=== PATIENT | female | born 1980 | race Caucasian/White ===

== ENCOUNTER 2020-04-10 15:38 | Emergency (ER) | payer OTHER ==
[~2020-04-10] VITALS: Ht 167.6 cm; Wt 104.3 kg
[~2020-04-10 15:38] MED LIST: ADDERALL 30 MG30 MG PO; CELEXA40 MG PO; FISH OIL 1,001000 M2 PO; IBUPROFEN 400400 M2 PO; LYRICA 75 MG CA75 MG PO; MOBIC15 MG PO; NEURONTIN 300300 M1 PO; NEXIUM40 MG PO; NORCO 5-325 TA1 EACH PO; OXYCONTIN80 M1 PO; PEPCID20 MG PO; UNICOMPLEX M TA1 TA1 PO; ZOVIA 1-35E1 EACH PO
[2020-04-10] MEDS ORDERED: LYRICA 75 MG CA75 MG PO (16:04)
[2020-04-10] MEDS ORDERED: MIRTAZAPINE45 MG PO (16:04)
[2020-04-10] MEDS ORDERED: OXYBUTYNIN 5 MG5 M2 PO (16:06)
[2020-04-10] MEDS ORDERED: BUSPIRONE HCL10 MG PO (16:07)
[2020-04-10 17:19] LABS: ABSOLUTE NEUTROPHILS 5.9 thou/uL (1.4-8.2); BASOPHILS 0.7 % (0.0-2.0); EOSINOPHILS 1.7 % (0.0-3.0); HEMATOCRIT 37.8 % (37.0-47.0); MCH 28.7 pg (26.0-34.0); MCHC 34.3 g/dL (28.0-37.0); MCV 83.6 fL (80.0-100.0); MONOCYTES 5.3 % (1.0-8.0); PLATELET COUNT 299 thou/uL (150-400); POLYS 59.3 % (36.0-66.0); RBC 4.53 mil/uL (4.20-5.00); RDW 13.6 % (10.5-14.5); WBC 9.9 thou/uL (4.0-11.0)
[2020-04-10 17:34] LABS: ANION GAP 11 mmol/L (7-16); BUN 12 mg/dL (7-18); CALCIUM 8.8 mg/dL (8.5-10.1); CHLORIDE 103 mmol/L (98-107); CO2 23 mmol/L (21-32); CREATININE 0.7 mg/dL (0.6-1.0); GLUCOSE 88 mg/dL (74-106); SODIUM 137 mmol/L (136-145)
[2020-04-10 17:35] LABS: POTASSIUM 4.3 mmol/L (3.5-5.1)
[2020-04-10 17:42] LABS: TROPONIN-I <0.06 ng/mL (<0.06)
[2020-04-10 18:01] VITALS: BP 140/68
== END 2020-04-10 18:02 | disposition home or self-care (01) ==
LOC: ER 15:38
PROVIDERS: Emergency Medicine
DX: R07.89 Other chest pain (principal); R00.0 Tachycardia, unspecified; R06.02 Shortness of breath; M25.512 Pain in left shoulder; K21.9 Gastro-esophageal reflux disease without esophagitis; M79.7 Fibromyalgia; F90.9 Attention-deficit hyperactivity disorder, unspecified type; F32.9 Major depressive disorder, single episode, unspecified; Z90.49 Acquired absence of other specified parts of digestive tract; Z79.899 Other long term (current) drug therapy; Z88.5 Allergy status to narcotic agent